=== PATIENT | female | born 1965 | race African-American/Black ===

== ENCOUNTER 2017-06-30 03:20 | Observation (INO) ==
[2017-06-30] MEDS ORDERED: KETOROLAC 30 MG/1 ML VIAL IV STA (04:21)
[2017-06-30] MEDS ORDERED: diphenhydrAMINE 50 MG/1 ML VIAL IV STA (04:21)
[2017-06-30] MEDS ORDERED: METOCLOPRAMIDE 10 MG/2 ML VIAL IV STA (04:22)
[2017-06-30 04:29] LABS: Basophils % 0.5 % (0.0-0.8); Eosinophils # 0.4 10*3/uL (0.0-0.87); Eosinophils % 9.2 % (0.00-10.9); Hematocrit 22.5 VOL% (35.7-47.0); Hemoglobin 6.6 GM/DL (12.0-16.0); Immature Granulocytes % 0.2 %; Immature Granulocytes Absolute 0.01 #; Lymphocytes # 1.3 10*3/uL (1.4-4.0); Lymphocytes % 29.9 % (21.3-54.2); Mean Corpuscular HGB Conc 29.3 GM/DL (32-36); Mean Corpuscular Hemoglobin 21 PG (27-34); Mean Corpuscular Volume 72.3 FL (87-102); Mean Platelet Volume 11.2 FL (9.6-12.0); Monocytes # 0.3 10*3/uL (0.11-0.8); Monocytes % 7.8 % (1.7-12.7); Neutrophils # 2.3 10*3/uL (1.4-7.4); Neutrophils % 52.4 % (38.7-73.9); Platelet Count 363 T/CUMM (130-400); Red Blood Count 3.11 MC/CUMM (3.8-5.5); Red Cell Distribution Width 15.9 % (9.3-17.3); White Blood Count 4.4 T/CUMM (4-12)
[2017-06-30] MEDS ORDERED: METOCLOPRAMIDE 10 MG/2 ML VIAL ONE (04:38)
[2017-06-30] MEDS ORDERED: diphenhydrAMINE 50 MG/1 ML VIAL ONE (04:38)
[2017-06-30] MEDS ORDERED: KETOROLAC 30 MG/1 ML VIAL ONE (04:38)
[2017-06-30 04:47] LABS: Albumin 3.7 G/DL (3.4-5.0); Bilirubin,Total 0.4 MG/DL (0.2-1.0); Calcium 10.1 MG/DL (8.5-10.1); Osmolality,Calculated 282.1 MOS/KG (273-304); Potassium 3.7 MMOL/L (3.5-5.1); Total Protein 7.1 G/DL (6.4-8.3)
[2017-06-30] MEDS ORDERED: DOCUSATE SODIUM 100 MG CAPSULE PO PRN (07:55)
[2017-06-30] MEDS ORDERED: SODIUM CHLORIDE 0.9% 1,000 ML IV SCH (07:55)
[2017-06-30] MEDS ORDERED: ONDANSETRON 4 MG/2 ML VIAL IV PRN (07:55)
[2017-06-30] MEDS ORDERED: ACETAMINOPHEN 325 MG TABLET PO PRN (07:55)
[2017-06-30] MEDS: ENOXAPARIN 40 MG/0.4 ML SYRINGE SUBCUT SCH (09:00)
[2017-06-30] MEDS: PANTOPRAZOLE 40 MG TABLET PO SCH (09:00)
[2017-06-30] MEDS ORDERED: CARVEDILOL 12.5 MG TABLET PO SCH (09:00)
[2017-06-30] MEDS: medroxyPROGESTERone 5 MG TABLET PO SCH (09:02)
[2017-06-30] MEDS: ACYCLOVIR INJ 750 MG in SODIUM CHLORIDE 0.9% 250 ML IV SCH ×2 (10:15→17:21)
[2017-06-30] MEDS ORDERED: SODIUM CHLORIDE 0.9% 250 ML IV PRN (10:36)
[2017-06-30] MEDS ORDERED: DIAZEPAM 5 MG TABLET PO ONE (10:49)
[2017-06-30 18:22] LABS: Hemoglobin 8.6 GM/DL (12.0-16.0)
[2017-07-01] MEDS: ACYCLOVIR INJ 750 MG in SODIUM CHLORIDE 0.9% 250 ML IV SCH ×2 (01:43→08:08)
[2017-07-01] MEDS: ENOXAPARIN 40 MG/0.4 ML SYRINGE SUBCUT SCH (08:09)
[2017-07-01] MEDS: medroxyPROGESTERone 5 MG TABLET PO SCH (08:09)
[2017-07-01] MEDS: PANTOPRAZOLE 40 MG TABLET PO SCH (08:09)
[2017-07-01 08:22] VITALS: BP 119/60
== END 2017-07-01 10:10 | disposition home or self-care (01) ==
LOC: N.ED 03:20 → INTOOBSV 06:40 → N.EDINP 06:40 → N.2E 07:53
PROVIDERS: ADMIT Internal Medicine Geriatric Medicine; ATTEND Internal Medicine Geriatric Medicine